=== PATIENT | male | born 1960 | race Caucasian/White ===

== ENCOUNTER 2023-10-13 17:40 | Inpatient (IN) ==
--- NOTE | 2023-10-13 17:53 | Emergency Department Note ---
Impression & Plan Syncope, Hypokalemia, Abnormal EKG, Elevated troponin I level ED Provider Note NAME: KARLEE VASQUEZ AGE: 63 SEX: M : 1960 ARRIVES VIA: Walk-In INFORMANT: Patient, ED PROVIDER(S): Ramana Burrows DO CHIEF COMPLAINT: Syncope HPI: The patient is a 63-year-old male who presented to the emergency department through triage for an evaluation of syncope. The patient is visiting the area for hunting season. He was at a hunting camp with some friends. He does admit to a small amount of alcohol throughout the day but he states he felt lightheaded and passed out. His friends told him that he passed out and slumped to the ground. The patient denies having any headache. He did not fall. He did not strike his head. The patient denies having any recent fevers. He did have some wheezing and coughing recently. He denies having any fever or abdominal pain. He denies having any chest pain. He denies having any leg swelling. ROS: See above HPI for pertinent positives & negatives. A total of 10 systems reviewed and were otherwise negative. PAST MEDICAL HISTORY: See Below PAST SURGICAL HISTORY: See Below FAMILY HISTORY: See Below SOCIAL HISTORY: See Below HOME MEDICATIONS: See Below ALLERGIES: See Below VITALS: See Below PHYSICAL EXAMINATION: GENERAL: Patient is awake alert in no acute distress patient is resting comfortably and showing no signs of anxiety EYES: The conjunctivae are clear. The pupils are round and reactive. EARS, NOSE, MOUTH AND THROAT: The nose is without any evidence of any deformity. NECK: The neck is nontender and supple. RESPIRATORY: Normal respiratory effort is noted there is no evidence of wheezing rhonchi or rales CARDIOVASCULAR: Regular rate and rhythm noted there no murmurs rubs or gallops normal S1 normal S2. GASTROINTESTINAL: The abdomen is soft. Abdomen is nontender. MUSCULOSKELETAL/EXTREMITIES: There is no evidence of gross deformity full range of motion is noted in the hips and shoulders. SKIN: There is no obvious evidence of any rash. There are no petechiae, pallor or cyanosis noted. NEUROLOGIC: Patient is awake alert and oriented x3 strength is symmetric patellar reflexes are 2+ bilaterally MEDICAL DECISION MAKING: The patient is a 63-year-old male who presented to the emergency department after having a syncopal episode. Patient was found to have an abnormal EKG on initial presentation. The patient was not hypoxic or tachycardic. He was found to have an elevation in his D-dimer. For this reason further radiographic studies were obtained such as a CT angiography of the chest. This did not appear to be consistent with acute pulmonary embolism. The patient had serial troponin measurements in the emergency department. His second troponin was elevated compared to the initial. For this reason I discussed his condition with the on-call [facility] hospitalist. They have agreed to evaluate the patient in the emergency department for further management and disposition. Given his findings he may require further cardiac workup to rule out a cardiac source for his syncopal episode. He was treated with IV fluids. On reevaluation he was significantly improved. He was also treated with potassium replacement. Triage Nursing notes reviewed. Prior medical records reviewed Vital Signs: reviewed and remarkable for no significant abnormalities Differential diagnosis: Vasovagal event, dehydration, infection, hypoglycemia, electrolyte abnormalities, cardiac sources, intracerebral event, pulmonary embolism, seizure, toxicologic, neurologic, as well as other pathologies. ER treatment provided: See below Diagnostics interpreted by me: ECG: EKG was obtained in the emergency department. My interpretation is normal sinus rhythm at 88 bpm. There was no ectopy. Early transition was noted. Nonspecific low lateral ST depressions were noted. No previous tracing was available. Cardiac Monitoring: An order was placed for continuous cardiac monitoring. The monitor shows a rate of 73 bpm with sinus rhythm. Laboratory studies: As stated above and show below. Imaging studies: See below. Radiographic imaging was reviewed by myself Consultation(s): I discussed this case with Dr. Ponce [facility] ED COURSE: The patient was placed in observation status at 1801. The patient was placed in observation for serial troponin measurements. During the time in observation, the patient was frequently reassessed and received serial troponin measurements. On Final reassessment the patient was found to have an elevation in the troponin compared to the initial troponin and the patient will be evaluated by the hospitalist for possible inpatient management at this time. A total observation time of 2 hours Procedures: none Past Med/Surg History Medical History Hypertension Social History Smoking Status: Current some day smoker Feels Safe at Home: Yes Allergies Allergies Allergy/AdvReac Type Severity Reaction Status Date / Time No Known Allergies Allergy Verified 10/13/23 18:30 Home Meds Home Medications Medication Instructions Recorded Confirmed amlodipine 5 mg tablet 5 mg PO QAM 10/13/23 10/13/23 chlorthalidone 25 mg tablet 25 mg PO QAM 10/13/23 10/13/23 lisinopril 20 mg tablet 20 mg PO QAM 10/13/23 10/13/23 multivitamin 1 tab PO QAM 10/13/23 10/13/23 niacin 100 mg tablet 0 mg PO QAM 10/13/23 10/13/23 omega 8-buv-rdp-fish oil 1,000 mg 1 cap PO QAM 10/13/23 10/13/23 (120 mg-180 mg) capsule (Fish Oil) Results & Data (ED) Vital Signs Vital Signs - 24 hr 10/13/23 17:42 10/13/23 17:58 10/13/23 18:17 Temperature 36.8 C Temperature Source Temporal Artery Scan Pulse Rate 89 88 82 Pulse Rate from SpO2 Sensor Pulse Rhythm Regular Respiratory Rate 18 18 Respiratory Effort / Characteristics Non-Labored Spontaneous Respiratory Depth Normal Respiratory Pattern Regular Blood Pressure 150/97 H Blood Pressure Mean 114 Blood Pressure Position Sitting Pulse Oximetry 99 96 Oxygen Delivery Method Room Air Room Air Sepsis Recent Fever Within 48 Hours No Sepsis New/Unexplained Change in Mental Status No Sepsis Action Taken by Nursing No Action Required 10/13/23 19:05 10/13/23 19:30 10/13/23 20:00 Temperature Temperature Source Pulse Rate 83 89 86 Pulse Rate from SpO2 Sensor 84 Pulse Rhythm Respiratory Rate 22 18 14 Respiratory Effort / Characteristics Respiratory Depth Respiratory Pattern Blood Pressure 126/83 146/95 H Blood Pressure Mean 97 112 Blood Pressure Position Pulse Oximetry 99 98 98 Oxygen Delivery Method Room Air Room Air Sepsis Recent Fever Within 48 Hours Sepsis New/Unexplained Change in Mental Status Sepsis Action Taken by Nursing 10/13/23 21:02 10/13/23 22:00 10/13/23 23:00 Temperature Temperature Source Pulse Rate 87 88 77 Pulse Rate from SpO2 Sensor Pulse Rhythm Respiratory Rate 20 12 18 Respiratory Effort / Characteristics Respiratory Depth Respiratory Pattern Blood Pressure 146/89 H 138/89 124/84 Blood Pressure Mean 103 99 97 Blood Pressure Position Pulse Oximetry Oxygen Delivery Method Sepsis Recent Fever Within 48 Hours Sepsis New/Unexplained Change in Mental Status Sepsis Action Taken by Nursing 10/14/23 00:00 Temperature Temperature Source Pulse Rate 69 Pulse Rate from SpO2 Sensor Pulse Rhythm Respiratory Rate 20 Respiratory Effort / Characteristics Respiratory Depth Respiratory Pattern Blood Pressure 119/76 Blood Pressure Mean 90 Blood Pressure Position Pulse Oximetry 98 Oxygen Delivery Method Room Air Sepsis Recent Fever Within 48 Hours Sepsis New/Unexplained Change in Mental Status Sepsis Action Taken by [facility] Medications Current Medication List: was personally reviewed by me Laboratory Data Attestation: I reviewed the patient's lab results. 10/13/23 18:01 10/13/23 18:01 Lab Results 10/13/23 10/13/23 Range/Units 18:01 21:00 WBC 8.76 (4.8-10.8) K/ul RBC 4.91 (4.70-6.10) M/uL Hgb 15.2 (14.0-18.0) g/dl Hct 43.5 (42.0-52.0) % MCV 88.6 (80.0-100.0) fL MCH 31.0 (25.0-34.0) pg MCHC 34.9 (32.0-36.0) g/dL RDW Std Deviation 39.6 (36.4-46.3) fL RDW Coeff of Abraham 12.2 (11.5-14.5) % Plt Count 163 (130-400) K/uL MPV 10.6 (9.4-12.4) fL Immature Gran % (Auto) 0.3 % Neut % (Auto) 79.6 % Lymph % (Auto) 11.3 % [place] % (Auto) 8.4 % Eos % (Auto) 0.1 % Baso % (Auto) 0.3 % Neut # (Auto) 6.96 H (1.40-6.50) K/uL Lymph # (Auto) 0.99 L (1.20-3.40) K/uL [place] # (Auto) 0.74 H (0.11-0.59) K/uL Eos # (Auto) 0.01 (0.00-0.50) K/uL Baso # (Auto) 0.03 (0.00-0.20) K/uL Immature Gran # (Auto) 0.03 (0.01-0.20) K/uL PT 10.9 (9.0-12.0) Seconds INR 1.0 (0.9-1.1) APTT 27.6 (21.0-31.0) Seconds PTT Ratio 1.0 D-Dimer 3110 H* (0-500) ug/L FEU Sodium 136 (136-145) mmol/L Potassium 3.1 L (3.5-5.1) mmol/L Chloride 97 L (98-107) mmol/L Carbon Dioxide 29 (21-32) mmol/L Anion Gap 10 (3-11) BUN 16 (6-23) mg/dl Creatinine 1.18 (0.6-1.4) mg/dl Est Cr Clr Drug Dosing 85.5 ml/min Est GFR ( Amer) 76.7 ml/min Est GFR (Non-Af Amer) 66.2 ml/min BUN/Creatinine Ratio 13.6 (10-20) Glucose 152 H (70-99(Fasting)) mg/dl Calcium 9.3 (8.6-10.3) mg/dl Magnesium 1.8 (1.7-2.4) mg/dl Total Bilirubin 0.7 (0.2-1.0) mg/dl AST 17 (13-39) U/L ALT 21 (7-52) U/L Alkaline Phosphatase 73 (34-104) U/L Troponin I High Sens 16.1 23.3 H (0-20) pg/ml Total Protein 7.0 (6.0-8.3) gm/dl Albumin 4.1 (3.4-5.0) gm/dl Globulin 2.9 (2.5-4.0) gm/dl Albumin/Globulin Ratio 1.4 (0.9-2) TSH 1.249 (0.300-4.500) uIu/ml Urine Color Yellow Urine Appearance Clear (Clear) Urine pH 7.5 (4.5-7.5) Ur Specific [place] 1.017 (1.000-1.030) Urine Protein Trace H (Negative) Urine Glucose (UA) Negative (Negative) Urine Ketones 1+ H (Negative) Urine Blood Negative (Negative) Urine Nitrite Negative (Negative) Urine Bilirubin Negative (Negative) Urine Urobilinogen Negative (Negative) Ur Leukocyte Esterase Negative (Negative) Urine WBC (Auto) 1-5 (0-5) /hpf Urine RBC (Auto) 5-10 H (0-4) /hpf U Hyaline Cast (Auto) 1-5 (0-5) /lpf U Epithel Cells (Auto) 5-10 H (0-5) /lpf Urine Bacteria (Auto) Negative (Negative) Ethyl Alcohol mg/dL < 10.0 (<10.0) mg/dl SARS-CoV-2 (PCR) NEGATIVE (Negative) Influenza Type A (PCR) Negative (Neg) Influenza Type B (PCR) Negative (Neg) RSV (RT-PCR) Negative (Neg) Administered Medications Discontinued Medications Aspirin (Aspirin Chew 324 Mg) 324 mg PO NOW STA Stop: 10/13/23 22:56 Last Admin: 10/13/23 23:12 Dose: 324 mg Documented By: LULA Sodium Chloride (Nss) 1,000 mls @ 999 mls/hr IV .Q1H1M ALISHA Stop: 10/13/23 19:00 Last Infusion: 10/13/23 19:09 Dose: Infused Documented By: Admin: 10/13/23 18:10 Dose: 999 mls/hr Documented By: NATACHA Ioversol (Optiray 320 125ml) 118 ml IV ONCE ONE Stop: 10/13/23 19:01 Last Admin: 10/13/23 19:00 Dose: 118 ml Documented By: JUAN Potassium Chloride (Potassium Chloride 10 Meq Tabcr) 20 meq PO NOW STA Stop: 10/13/23 18:50 Last Admin: 10/13/23 19:07 Dose: 20 meq Documented By: LULA Imaging Data Attestation: I personally reviewed and interpreted this imaging study as follows: My Impression: 1 view chest x-ray was obtained in the emergency department. My interpretation is no free air or definite infiltrate, there was a loop of bowel over the liver, no previous chest x-ray was available, final report pending. Radiologist's Impression: Chest X-Ray 10/13/23 17:52 XR chest 1V portable HISTORY: syncope COMPARISON: None. FINDINGS: The lungs are clear. Cardiac silhouette is normal in size. No pleural effusions. No pneumothorax. IMPRESSION: No acute process. ACT 112: Negative or not required by law. Electronically signed by: Marck Diehl M.D. 10/13/2023 7:04 PM Chest CTA 10/13/23 18:51 Exam(s): CTA CHEST IV Amt: 118ml EXAM: CT Angiography Chest With Intravenous Contrast CLINICAL HISTORY: Pulmonary embolus. TECHNIQUE: Axial computed tomographic angiography images of the chest with intravenous contrast. CTDI is 27.89 mGy and DLP is 963.25 mGy-cm. Automated exposure control was utilized for the study. A dose lowering technique was utilized adhering to the principles of ALARA. MIP reconstructed images were created and reviewed. COMPARISON: Chest radiograph 10/13/2023 FINDINGS: Pulmonary arteries: Unremarkable. No pulmonary embolus. Aorta: Minimal atherosclerosis. No thoracic aortic aneurysm. Lungs: Unremarkable. No mass. No consolidation. Pleural space: Unremarkable. No significant effusion. No pneumothorax. Heart: Unremarkable. No cardiomegaly. No significant pericardial effusion. No evidence of RV dysfunction. Thyroid: Incidentally noted right thyroid 2.5 cm nodule. An additional 2.3 cm mass adjacent to the inferior aspect of the thyroid isthmus is also present. Bones/joints: There are degenerative changes of the spine. No acute fracture. Soft tissues: Unremarkable. Lymph nodes: Unremarkable. No enlarged lymph nodes. IMPRESSION: 1. No pulmonary embolus. 2. Incidentally noted right thyroid 2.5 cm nodule. An additional 2.3 cm mass adjacent to the inferior aspect of the thyroid isthmus is also present. Recommend further evaluation with dedicated thyroid ultrasound on a nonemergent basis. Electronically signed by: Deidre Bee MD 10/13/23 20:42 PM Discharge Plan Visit Data Chief Complaint: Syncope (Near Syncope) Stated Complaint: SYNCOPE ED Provider: Ramana Burrows Discharge Problem: Syncope, Hypokalemia Prescriptions Prescriptions: No Action multivitamin Tablet 1 tab PO QAM lisinopril 20 mg tablet 20 mg PO QAM chlorthalidone 25 mg tablet 25 mg PO QAM amlodipine 5 mg tablet 5 mg PO QAM niacin 100 mg Tablet 0 mg PO QAM Rx Instructions: PT UNSURE OF STRENGTH omega 0-oyp-fxu-fish oil [Fish Oil] 1,000 mg (120 mg-180 mg) Capsule 1 cap PO QAM Discharge Problem: Syncope Qualifiers: Syncope type: unspecified Qualified Code(s): R55 - Syncope and collapse
[2023-10-13] MEDS ORDERED: SODIUM CHLORIDE 0.9% 1,000 ML IV SCH (18:00)
[2023-10-13 18:19] LABS: Appearance Urine Clear (Clear); Bacteria Urine Automated Negative (Negative); Bilirubin Urine Negative (Negative); Blood Urine Negative (Negative); Color Urine Yellow; Glucose Urine UA Negative (Negative); Ketones Urine 1+ (Negative); Leukocyte Esterase Urine Negative (Negative); Nitrite Urine Negative (Negative); Specific Gravity Urine 1.017 (1.000-1.030); Urobilinogen Urine Negative (Negative); pH Urine 7.5 (4.5-7.5)
[2023-10-13 18:20] LABS: Protein Urine Trace (Negative)
[2023-10-13 18:24] LABS: Basophils # (auto) 0.03 K/uL (0.00-0.20); Basophils % (auto) 0.3 %; Eosinophils # (auto) 0.01 K/uL (0.00-0.50); Eosinophils % (auto) 0.1 %; Hematocrit (blood only) 43.5 % (42.0-52.0); Hemoglobin 15.2 g/dl (14.0-18.0); Immature Granulocytes # (auto) 0.03 K/uL (0.01-0.20); Immature Granulocytes % (auto) 0.3 %; Lymphocytes # (auto) 0.99 K/uL (1.20-3.40); Lymphocytes % (auto) 11.3 %; Mean Corpuscular Hgb Conc 34.9 g/dL (32.0-36.0); Mean Corpuscular Volume 88.6 fL (80.0-100.0); Mean Platelet Volume 10.6 fL (9.4-12.4); Monocytes # (auto) 0.74 K/uL (0.11-0.59); Monocytes % (auto) 8.4 %; Neutrophils # (auto) 6.96 K/uL (1.40-6.50); Neutrophils % (auto) 79.6 %; Platelet Count 163 K/uL (130-400); RDW Coefficient of Variation 12.2 % (11.5-14.5); RDW Standard Deviation 39.6 fL (36.4-46.3); Red Blood Count 4.91 M/uL (4.70-6.10); White Blood Count 8.76 K/ul (4.8-10.8)
[2023-10-13 18:39] LABS: Albumin Level 4.1 gm/dl (3.4-5.0); Bilirubin,Total 0.7 mg/dl (0.2-1.0); Calcium 9.3 mg/dl (8.6-10.3); Magnesium 1.8 mg/dl (1.7-2.4); Potassium 3.1 mmol/L (3.5-5.1)
[2023-10-13 18:44] LABS: Troponin I High Sensitivity 16.1 pg/ml (0-20)
[2023-10-13 18:45] LABS: Albumin Globulin Ratio 1.4 (0.9-2); BUN Creatinine Ratio 13.6 (10-20); Creatinine Clr Calc Pharmacy 85.5 ml/min; Est GFR (African American) 76.7 ml/min; Est GFR (Non-African American) 66.2 ml/min; Globulin 2.9 gm/dl (2.5-4.0)
[2023-10-13 18:48] LABS: Partial Thromboplastin Time 27.6 Seconds (21.0-31.0); Prothrombin Time 10.9 Seconds (9.0-12.0)
[2023-10-13 18:49] LABS: D Dimer 3110 ug/L FEU (0-500)
[2023-10-13] MEDS ORDERED: POTASSIUM CHLORIDE 10 MEQ TABCR PO STA (18:49)
[2023-10-13 18:54] LABS: Thyroid Stimulating Hormone 1.249 uIu/ml (0.300-4.500)
[2023-10-13 18:58] LABS: Influenza A virus by PCR Negative (Neg); Influenza B virus by PCR Negative (Neg); RSV by PCR Negative (Neg); SARS CoV2 RNA(COVID-19) Ceph NEGATIVE (Negative)
[2023-10-13] MEDS ORDERED: OPTIRAY 320 125ml IV ONE (19:00)
--- NOTE | 2023-10-13 19:07 | XRay Report ---
XR chest 1V portable HISTORY: syncope COMPARISON: None. FINDINGS: The lungs are clear. Cardiac silhouette is normal in size. No pleural effusions. No pneumot horax. IMPRESSION: No acute process. ACT 112: Negative or not required by law. Electronically signed by: Marck Diehl M.D. 10/13/2023 7:04 PM
--- NOTE | 2023-10-13 20:44 | CT Scan Report ---
Exam(s): CTA CHEST IV Amt: 118ml EXAM: CT Angiography Chest With Intravenous Contrast CLINICAL HISTORY: Pulmonary embolus. TECHNIQUE: Axial computed tomographic angiography images of the chest with intravenous contrast. CTDI is 27.89 mGy and DLP is 963.25 mGy-cm. Automated exposure control was utilized for the study. A dose lowering technique was utilized adhering to the principles of ALARA. MIP reconstructed images were created and reviewed. COMPARISON: Chest radiograph 10/13/2023 FINDINGS: Pulmonary arteries: Unremarkable. No pulmonary embolus. Aorta: Minimal atherosclerosis. No thoracic aortic aneurysm. Lungs: Unremarkable. No mass. No consolidation. Pleural space: Unremarkable. No significant effusion. No pneumothorax. Heart: Unremarkable. No cardiomegaly. No significant pericardial effusion. No evidence of RV dysfunction. Thyroid: Incidentally noted right thyroid 2.5 cm nodule. An additional 2.3 cm mass adjacent to the inferior aspect of the thyroid isthmus is also present. Bones/joints: There are degenerative changes of the spine. No acute fracture. Soft tissues: Unremarkable. Lymph nodes: Unremarkable. No enlarged lymph nodes. IMPRESSION: 1. No pulmonary embolus. 2. Incidentally noted right thyroid 2.5 cm nodule. An additional 2.3 cm mass adjacent to the inferior aspect of the thyroid isthmus is also present. Recommend further evaluation with dedicated thyroid ultrasound on a nonemergent basis. Electronically signed by: Deidre Bee MD 10/13/23 20:42 PM
[2023-10-13] MEDS ORDERED: ASPIRIN CHEW 324 MG PO STA (22:55)
--- NOTE | 2023-10-13 23:09 | History & Physical Report ---
Date of Service October 13, 2023 Assessment & Plan (1) Syncope: Plan: 63-year-old male with past med hsitory significant for hypertension presents with syncope. [place] Gentle fluids and orthostatics D-dimer was elevated but CTA chest unremarkable Second troponin is mildly elevated After episode had a brief episode of left sided chest pain EKG no acute findings Will monitor on telemetry Will follow serial troponins Start on aspirin If troponins trends higher will start on IV heparin Echocardiogram Cardiology consult Hypokalemia Replace History of hypertension Continue home medications of amlodipine, chlorthalidone and lisinopril Will monitor DVT prophylaxis SCDs for now Disposition telemetry floor Full code History of Present Illness Chief Complaint: Syncope Primary Care Provider: NO PCP 63-year-old male with past med history significant for hypertension presents with syncope. Patient visiting locally for hunting and was in a hunting camp. He was playing cards when he suddenly passed out and was caught before falling down. Passed out for about 1 to 2 minutes. After waking up he was not confused. No biting of tongue , no shaking of the body and no incontinence during the episode. After waking up he was had brief episodes of sweating. He also brief episode of left-sided chest pain 3/10 in severity ,no radiation. No shortness of breath. No dizziness. Currently no chest pain. No fevers. Last Monday and he had mild cold symptoms but that resolved. Eating and drinking okay. Yesterday and today he had 1 beer. At work he walks and in last 2 days he was walking and did not had any chest pain or shortness of breath. Denies any headache. Vision is okay. No abdominal pain. Normal bowel and bladder movements. No rash. Patient states about 1 and half years ago he had a similar episode when he was found to have a high blood pressure. He also had a stress test at that time which was unremarkable as per patient. Past medical history. As mentioned above. Past surgical history. [place] tooth extraction Social history. Smokes cigars once in a while. Social drinking. No drug use. Family history. Mother and father had high blood pressure. Maternal grandmother had late onset diabetes. Allergies Allergy/AdvReac Type Severity Reaction Status Date / Time No Known Allergies Allergy Verified 10/13/23 18:30 Home Medications Medication Instructions Recorded Confirmed Type amlodipine 5 mg tablet 5 mg PO QAM 10/13/23 10/13/23 History chlorthalidone 25 mg tablet 25 mg PO QAM 10/13/23 10/13/23 History lisinopril 20 mg tablet 20 mg PO QAM 10/13/23 10/13/23 History multivitamin 1 tab PO QAM 10/13/23 10/13/23 History niacin 100 mg tablet 0 mg PO QAM 10/13/23 10/13/23 History omega 6-syc-csf-fish oil 1,000 mg 1 cap PO QAM 10/13/23 10/13/23 History (120 mg-180 mg) capsule (Fish Oil) Past Med/Surg History Medical History Hypertension Social History Smoking Status: Current some day smoker Tobacco Type: Cigars Second Hand Exposure: No; Do You Dip or Chew Tobacco: No; Tobacco Cessation Education Requested by Patient: No Hx Alcohol Use: Yes Alcohol type: beer Hx Substance Use: No Preferred Language: Croatian Communication Ability: Effective Basin Cleaner Required: No Beliefs That Will Affect Care: None Current Living Situation: Spouse Other Information That Helps Us Care for You: No Feels Safe at Home: Yes Safety Concerns: Feels Safe At This Time Assistive Devices: None Review of Systems Review of Systems: All systems reviewed & are unremarkable except as noted in HPI & below Physical Exam Physical Exam: General- Not in distress Head- atraumatic Eyes- PERRL. ENT- oropharynx clear Neck- supple, no JVD. Lungs- clear to auscultation no wheezing or crackles. Heart- regular rhythm; no murmur, no gallop. Abdomen- normal bowel sounds, soft, nontender, no distension. Extremities- no pretibial edema, no erythema seen. Neuro- alert, oriented x 3; PERRL.no facial palsy; no dysarthria; moves extremities. Skin- warm & dry Results & Data Results & Data Vital Signs (Past 12 Hours) Vital Signs Temp Pulse Resp BP Pulse Ox O2 Del Method 10/13/23 23:00 77 18 124/84 10/13/23 22:00 88 12 138/89 10/13/23 21:02 87 20 146/89 H 10/13/23 20:00 86 14 146/95 H 98 Room Air 10/13/23 19:30 89 18 98 Room Air 10/13/23 19:05 83 22 126/83 99 10/13/23 18:17 82 18 96 Room Air 10/13/23 17:58 88 10/13/23 17:42 36.8 C 89 18 150/97 H 99 Room Air Diagnostic Findings Laboratory Results WBC 8.76 K/ul (4.8-10.8) 10/13/23 18:01 RBC 4.91 M/uL (4.70-6.10) 10/13/23 18:01 Hgb 15.2 g/dl (14.0-18.0) 10/13/23 18:01 Hct 43.5 % (42.0-52.0) 10/13/23 18:01 MCV 88.6 fL (80.0-100.0) 10/13/23 18:01 MCH 31.0 pg (25.0-34.0) 10/13/23 18:01 MCHC 34.9 g/dL (32.0-36.0) 10/13/23 18:01 RDW Std Deviation 39.6 fL (36.4-46.3) 10/13/23 18:01 RDW Coeff of [place] 12.2 % (11.5-14.5) 10/13/23 18:01 Plt Count 163 K/uL (130-400) 10/13/23 18:01 MPV 10.6 fL (9.4-12.4) 10/13/23 18:01 Immature Gran % (Auto) 0.3 % 10/13/23 18:01 Neut % (Auto) 79.6 % 10/13/23 18:01 Lymph % (Auto) 11.3 % 10/13/23 18:01 [place] % (Auto) 8.4 % 10/13/23 18:01 Eos % (Auto) 0.1 % 10/13/23 18:01 Baso % (Auto) 0.3 % 10/13/23 18:01 Neut # (Auto) 6.96 K/uL (1.40-6.50) H 10/13/23 18:01 Lymph # (Auto) 0.99 K/uL (1.20-3.40) L 10/13/23 18:01 [place] # (Auto) 0.74 K/uL (0.11-0.59) H 10/13/23 18:01 Eos # (Auto) 0.01 K/uL (0.00-0.50) 10/13/23 18:01 Baso # (Auto) 0.03 K/uL (0.00-0.20) 10/13/23 18:01 Immature Gran # (Auto) 0.03 K/uL (0.01-0.20) 10/13/23 18:01 PT 10.9 Seconds (9.0-12.0) 10/13/23 18: INR 1.0 (0.9-1.1) 10/13/23 18:01 APTT 27.6 Seconds (21.0-31.0) 10/13/23 18: PTT Ratio 1.0 10/13/23 18:01 D-Dimer 3110 ug/L FEU (0-500) H* 10/13/23 18:01 Sodium 136 mmol/L (136-145) 10/13/23 18:01 Potassium 3.1 mmol/L (3.5-5.1) L 10/13/23 18:01 Chloride 97 mmol/L (98-107) L 10/13/23 18:01 Carbon Dioxide 29 mmol/L (21-32) 10/13/23 18:01 Anion Gap 10 (3-11) 10/13/23 18:01 BUN 16 mg/dl (6-23) 10/13/23 18:01 Creatinine 1.18 mg/dl (0.6-1.4) 10/13/23 18:01 Est Cr Clr Drug Dosing 85.5 ml/min 10/13/23 18:01 Est GFR ( Amer) 76.7 ml/min 10/13/23 18:01 Est GFR (Non-Af Amer) 66.2 ml/min 10/13/23 18:01 BUN/Creatinine Ratio 13.6 (10-20) 10/13/23 18: Glucose 152 mg/dl (70-99(Fasting)) H 10/13/23 18:01 Calcium 9.3 mg/dl (8.6-10.3) 10/13/23 18: Magnesium 1.8 mg/dl (1.7-2.4) 10/13/23 18:01 Total Bilirubin 0.7 mg/dl (0.2-1.0) 10/13/23 18:01 AST 17 U/L (13-39) 10/13/23 18:01 ALT 21 U/L (7-52) 10/13/23 18:01 Alkaline Phosphatase 73 U/L (34-104) 10/13/23 18:01 Troponin I High Sens 23.3 pg/ml (0-20) H 10/13/23 21:00 Total Protein 7.0 gm/dl (6.0-8.3) 10/13/23 18:01 Albumin 4.1 gm/dl (3.4-5.0) 10/13/23 18: Globulin 2.9 gm/dl (2.5-4.0) 10/13/23 18:01 Albumin/Globulin Ratio 1.4 (0.9-2) 10/13/23 18: TSH 1.249 uIu/ml (0.300-4.500) 10/13/23 18:01 Urine Color Yellow 10/13/23 18:01 Urine Appearance Clear (Clear) 10/13/23 18:01 Urine pH 7.5 (4.5-7.5) 10/13/23 18:01 Ur Specific [place] 1.017 (1.000-1.030) 10/13/23 18:01 Urine Protein Trace (Negative) H 10/13/23 18:01 Urine Glucose (UA) Negative (Negative) 10/13/23 18:01 Urine Ketones 1+ (Negative) H 10/13/23 18:01 Urine Blood Negative (Negative) 10/13/23 18:01 Urine Nitrite Negative (Negative) 10/13/23 18:01 Urine Bilirubin Negative (Negative) 10/13/23 18:01 Urine Urobilinogen Negative (Negative) 10/13/23 18:01 Ur Leukocyte Esterase Negative (Negative) 10/13/23 18:01 Urine WBC (Auto) 1-5 /hpf (0-5) 10/13/23 18:01 Urine RBC (Auto) 5-10 /hpf (0-4) H 10/13/23 18:01 U Hyaline Cast (Auto) 1-5 /lpf (0-5) 10/13/23 18:01 U Epithel Cells (Auto) 5-10 /lpf (0-5) H 10/13/23 18:01 Urine Bacteria (Auto) Negative (Negative) 10/13/23 18:01 Ethyl Alcohol mg/dL < 10.0 mg/dl (<10.0) 10/13/23 18:01 SARS-CoV-2 (PCR) NEGATIVE (Negative) 10/13/23 18:01 Influenza Type A (PCR) Negative (Neg) 10/13/23 18:01 Influenza Type B (PCR) Negative (Neg) 10/13/23 18:01 RSV (RT-PCR) Negative (Neg) 10/13/23 18:01 Impressions Chest X-Ray 10/13/23 17:52 XR chest 1V portable HISTORY: syncope COMPARISON: None. FINDINGS: The lungs are clear. Cardiac silhouette is normal in size. No pleural effusions. No pneumothorax. IMPRESSION: No acute process. ACT 112: Negative or not required by law. Electronically signed by: Marck Diehl M.D. 10/13/2023 7:04 PM Chest CTA 10/13/23 18:51 Exam(s): CTA CHEST IV Amt: 118ml EXAM: CT Angiography Chest With Intravenous Contrast CLINICAL HISTORY: Pulmonary embolus. TECHNIQUE: Axial computed tomographic angiography images of the chest with intravenous contrast. CTDI is 27.89 mGy and DLP is 963.25 mGy-cm. Automated exposure control was utilized for the study. A dose lowering technique was utilized adhering to the principles of ALARA. MIP reconstructed images were created and reviewed. COMPARISON: Chest radiograph 10/13/2023 FINDINGS: Pulmonary arteries: Unremarkable. No pulmonary embolus. Aorta: Minimal atherosclerosis. No thoracic aortic aneurysm. Lungs: Unremarkable. No mass. No consolidation. Pleural space: Unremarkable. No significant effusion. No pneumothorax. Heart: Unremarkable. No cardiomegaly. No significant pericardial effusion. No evidence of RV dysfunction. Thyroid: Incidentally noted right thyroid 2.5 cm nodule. An additional 2.3 cm mass adjacent to the inferior aspect of the thyroid isthmus is also present. Bones/joints: There are degenerative changes of the spine. No acute fracture. Soft tissues: Unremarkable. Lymph nodes: Unremarkable. No enlarged lymph nodes. IMPRESSION: 1. No pulmonary embolus. 2. Incidentally noted right thyroid 2.5 cm nodule. An additional 2.3 cm mass adjacent to the inferior aspect of the thyroid isthmus is also present. Recommend further evaluation with dedicated thyroid ultrasound on a nonemergent basis. Electronically signed by: Deidre Bee MD 10/13/23 20:42 PM ECG Additional Comments: ECG. Normal sinus rhythm rate of 88. Nonspecific T wave abnormality. Code Status & VTE Plan VTE Prophylaxis Plan VTE Prophylaxis will be ordered: Yes (1) Syncope Syncope type: unspecified Qualified Code(s): R55 - Syncope and collapse
[2023-10-14] MEDS ORDERED: SODIUM CHLORIDE 0.9% 1,000 ML IV SCH (02:29)
[2023-10-14] MEDS ORDERED: POLYETHYLENE (MIRALAX) 17 GM PACK PO PRN (02:29)
[2023-10-14] MEDS: NITROGLYCERIN SL 0.4 MG/TAB TAB SL PRN ×4 (06:11→17:44)
[2023-10-14 06:25] LABS: Basophils # (auto) 0.03 K/uL (0.00-0.20); Basophils % (auto) 0.4 %; Eosinophils # (auto) 0.03 K/uL (0.00-0.50); Eosinophils % (auto) 0.4 %; Hematocrit (blood only) 41.6 % (42.0-52.0); Hemoglobin 14.7 g/dl (14.0-18.0); Immature Granulocytes # (auto) 0.02 K/uL (0.01-0.20); Immature Granulocytes % (auto) 0.3 %; Mean Corpuscular Hemoglobin 30.8 pg (25.0-34.0); Mean Corpuscular Hgb Conc 35.3 g/dL (32.0-36.0); Mean Corpuscular Volume 87.2 fL (80.0-100.0); Mean Platelet Volume 10.7 fL (9.4-12.4); Monocytes # (auto) 0.92 K/uL (0.11-0.59); Monocytes % (auto) 13.1 %; Neutrophils # (auto) 4.84 K/uL (1.40-6.50); Neutrophils % (auto) 68.8 %; Platelet Count 176 K/uL (130-400); RDW Coefficient of Variation 12.4 % (11.5-14.5); RDW Standard Deviation 39.8 fL (36.4-46.3); Red Blood Count 4.77 M/uL (4.70-6.10); White Blood Count 7.04 K/ul (4.8-10.8)
[2023-10-14 06:40] LABS: BUN Creatinine Ratio 14.3 (10-20); Calcium 8.9 mg/dl (8.6-10.3); Est GFR (African American) 96.1 ml/min; Est GFR (Non-African American) 82.9 ml/min; Potassium 3.2 mmol/L (3.5-5.1)
[2023-10-14 06:46] LABS: Troponin I High Sensitivity 26.4 pg/ml (0-20)
[2023-10-14] MEDS ORDERED: POTASSIUM CHLORIDE CRTAB 20 MEQ TABCR PO STA (07:16)
[2023-10-14] MEDS ORDERED: INFLUENZA VIRUS QUADRIVALENT VACCINE (IIV4) 0.5 ML SYR IM ONE (08:13)
--- NOTE | 2023-10-14 08:14 | Electrocardiogram Report ---
Test Reason : Blood Pressure : / mmHG Vent. Rate : 088 BPM Atrial Rate : 088 BPM P-R Int : 156 ms QRS Dur : 108 ms QT Int : 364 ms P-R-T Axes : 034 -15 063 degrees QTc Int : 440 ms Normal sinus rhythm Diffuse Minor Nonspecific T wave abnormality Abnormal ECG No previous ECGs available Confirmed by Ronnell Estrada ([id number]) on 10/14/2023 8:14:00 AM Referred By: REFERRED SELF Confirmed By:Ronnell Estrada
--- NOTE | 2023-10-14 08:14 | Electrocardiogram Report ---
Test Reason : Blood Pressure : / mmHG Vent. Rate : 079 BPM Atrial Rate : 079 BPM P-R Int : 158 ms QRS Dur : 094 ms QT Int : 406 ms P-R-T Axes : 056 001 008 degrees QTc Int : 465 ms Normal sinus rhythm Normal ECG When compared with ECG of 13-OCT-2023 17:49, Nonspecific T wave abnormality no longer evident in Lateral leads Confirmed by Ronnell Estrada ([id number]) on 10/14/2023 8:14:09 AM Referred By: REFERRED SELF Confirmed By:Ronnell Estrada
[2023-10-14] MEDS ORDERED: CHLORTHALIDONE 25 MG TAB PO SCH (09:00)
[2023-10-14] MEDS: ASPIRIN 81 MG ECTAB PO SCH (09:49)
[2023-10-14] MEDS: amLODIPine BESYLATE 5 MG TAB PO SCH (09:49)
[2023-10-14] MEDS: lisinopril 20 MG TAB PO SCH (09:50)
[2023-10-14] MEDS: MULTIVITAMIN TAB PO SCH (09:50)
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
[2023-10-14] MEDS ORDERED: MoRPHine SULFATE 2 MG/ML CARP ONE (17:59)
[2023-10-14] MEDS ORDERED: ALUMINUM/MAGNESIUM SUSP 30 ML UDC PO STA (18:00)
[2023-10-14] MEDS ORDERED: MoRPHine SULFATE 2 MG/ML CARP IV STA (18:02)
[2023-10-14] MEDS: LACTATED RINGER'S 1,000 ML IV SCH (18:10)
[2023-10-14] MEDS ORDERED: Heparin IV Adult Wt-Based Standard w/ INITIAL Bolus Protocol IV SCH (18:22)
--- NOTE | 2023-10-14 18:22 | Communication Note ---
Date of Service: October 14, 2023 Patient had left-sided chest pain for which he received nitro. His blood pressure dropped with administration of nitro. Blood pressure improved with IV bolus. Patient seen at bedside. He reports chest pain on the left side; stabbing and intermittent. It is nonradiating. He reports that it is relieved with nitro EKG was obtained. It was discussed with on-call special needs bus driver as well. The EKG was interpreted by on-call special needs bus driver. Cardiology recommended serial EKG with chest pain, troponin. Troponin ordered 2 hours apart for 3 times. Heparin drip ordered Lipitor 40 mg ordered GI cocktail ordered Also placed on LR at 125 cc/h for maintenance fluid.
[2023-10-14] MEDS ORDERED: HEPARIN SOD (PORCINE) 1000 UNIT/ML IV ONE (18:23)
[2023-10-14] MEDS ORDERED: HEPARIN IV BOLUS 7,000 UNITS in SYRINGE 0 ML IV ONE (19:15)
[2023-10-14] MEDS: ATORVASTATIN 40 MG TAB PO SCH (19:46)
[2023-10-14] MEDS: HEPARIN SODIUM/DEXTROSE 25,000 UNITS/500 ML BAG IV SCH (19:47)
[2023-10-15] MEDS: LACTATED RINGER'S 1,000 ML IV SCH ×3 (02:18→18:31)
[2023-10-15 02:31] LABS: Basophils # (auto) 0.03 K/uL (0.00-0.20); Basophils % (auto) 0.6 %; Eosinophils # (auto) 0.03 K/uL (0.00-0.50); Eosinophils % (auto) 0.6 %; Hematocrit (blood only) 39.2 % (42.0-52.0); Hemoglobin 13.4 g/dl (14.0-18.0); Immature Granulocytes # (auto) 0.01 K/uL (0.01-0.20); Immature Granulocytes % (auto) 0.2 %; Lymphocytes # (auto) 1.63 K/uL (1.20-3.40); Lymphocytes % (auto) 32.8 %; Mean Corpuscular Hemoglobin 30.7 pg (25.0-34.0); Mean Corpuscular Hgb Conc 34.2 g/dL (32.0-36.0); Mean Corpuscular Volume 89.7 fL (80.0-100.0); Mean Platelet Volume 10.8 fL (9.4-12.4); Monocytes # (auto) 0.66 K/uL (0.11-0.59); Monocytes % (auto) 13.3 %; Neutrophils # (auto) 2.61 K/uL (1.40-6.50); Neutrophils % (auto) 52.5 %; Platelet Count 168 K/uL (130-400); RDW Coefficient of Variation 12.4 % (11.5-14.5); RDW Standard Deviation 41.1 fL (36.4-46.3); Red Blood Count 4.37 M/uL (4.70-6.10); White Blood Count 4.97 K/ul (4.8-10.8)
[2023-10-15 02:46] LABS: BUN Creatinine Ratio 19.6 (10-20); Calcium 8.4 mg/dl (8.6-10.3); Est GFR (African American) 97.3 ml/min; Est GFR (Non-African American) 83.9 ml/min; Phosphorus 3.6 mg/dl (2.5-4.9); Potassium 3.6 mmol/L (3.5-5.1)
[2023-10-15 02:53] LABS: Troponin I High Sensitivity 18.2 pg/ml (0-20)
[2023-10-15 03:15] LABS: Partial Thromboplastin Ratio 2.4
[2023-10-15 03:19] LABS: Partial Thromboplastin Time 66.4 Seconds (21.0-31.0)
[2023-10-15] MEDS ORDERED: MoRPHine SULFATE 2 MG/ML CARP IV PRN (07:17)
--- NOTE | 2023-10-15 07:45 | Electrocardiogram Report ---
Test Reason : Blood Pressure : / mmHG Vent. Rate : 084 BPM Atrial Rate : 084 BPM P-R Int : 154 ms QRS Dur : 094 ms QT Int : 372 ms P-R-T Axes : 061 -13 000 degrees QTc Int : 439 ms Normal sinus rhythm Normal ECG When compared with ECG of 14-OCT-2023 05:19, No significant change Confirmed by Ronnell Estrada ([id number]) on 10/15/2023 7:45:02 AM Referred By: REFERRED SELF Confirmed By:Ronnell Estrada
--- NOTE | 2023-10-15 07:53 | Electrocardiogram Report ---
Test Reason : Blood Pressure : / mmHG Vent. Rate : 064 BPM Atrial Rate : 064 BPM P-R Int : 158 ms QRS Dur : 098 ms QT Int : 430 ms P-R-T Axes : 057 006 016 degrees QTc Int : 443 ms Normal sinus rhythm Normal ECG When compared with ECG of 14-OCT-2023 17:38, No significant change Confirmed by Ronnell Esrtada ([id number]) on 10/15/2023 7:52:36 AM Referred By: REFERRED SELF Confirmed By:Ronnell Estrada
[2023-10-15 09:39] LABS: Partial Thromboplastin Ratio 2.1
[2023-10-15] MEDS: amLODIPine BESYLATE 5 MG TAB PO SCH (09:41)
[2023-10-15] MEDS: lisinopril 20 MG TAB PO SCH (09:41)
[2023-10-15] MEDS: ATORVASTATIN 40 MG TAB PO SCH (09:41)
[2023-10-15] MEDS: ASPIRIN 81 MG ECTAB PO SCH (09:41)
[2023-10-15 09:42] LABS: Partial Thromboplastin Time 59.5 Seconds (21.0-31.0)
[2023-10-15] MEDS: MULTIVITAMIN TAB PO SCH (09:42)
[2023-10-15] MEDS: HEPARIN SODIUM/DEXTROSE 25,000 UNITS/500 ML BAG IV SCH (10:24)
[2023-10-15] MEDS ORDERED: methylPREDNISolone 60 MG in SYRINGE 0 ML IV ONE (12:45)
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
[2023-10-15] MEDS: ACETAMINOPHEN 325 MG TAB PO PRN ×2 (15:55→20:33)
[2023-10-16] MEDS: HEPARIN SODIUM/DEXTROSE 25,000 UNITS/500 ML BAG IV SCH (00:36)
[2023-10-16] MEDS: LACTATED RINGER'S 1,000 ML IV SCH ×2 (02:36→13:18)
[2023-10-16 06:01] LABS: Basophils # (auto) 0.01 K/uL (0.00-0.20); Basophils % (auto) 0.2 %; Hematocrit (blood only) 39.9 % (42.0-52.0); Hemoglobin 13.8 g/dl (14.0-18.0); Immature Granulocytes # (auto) 0.01 K/uL (0.01-0.20); Immature Granulocytes % (auto) 0.2 %; Lymphocytes # (auto) 0.98 K/uL (1.20-3.40); Mean Corpuscular Hemoglobin 30.7 pg (25.0-34.0); Mean Corpuscular Hgb Conc 34.6 g/dL (32.0-36.0); Mean Corpuscular Volume 88.7 fL (80.0-100.0); Mean Platelet Volume 10.8 fL (9.4-12.4); Monocytes # (auto) 0.46 K/uL (0.11-0.59); Monocytes % (auto) 8.9 %; Neutrophils % (auto) 71.7 %; Platelet Count 196 K/uL (130-400); RDW Standard Deviation 39.3 fL (36.4-46.3); White Blood Count 5.16 K/ul (4.8-10.8)
[2023-10-16 06:16] LABS: BUN Creatinine Ratio 16.1 (10-20); Calcium 8.9 mg/dl (8.6-10.3); Creatinine Clr Calc Pharmacy 107.9 ml/min; Est GFR (African American) 102.3 ml/min; Est GFR (Non-African American) 88.3 ml/min; Potassium 3.7 mmol/L (3.5-5.1)
[2023-10-16 06:39] LABS: Partial Thromboplastin Ratio 2.4
--- NOTE | 2023-10-16 08:09 | Pre Anesthesia Assessment ---
Date of Service October 16, 2023 Pre Sedation Assessment Vital Signs Temp Pulse Pulse Resp BP BP Pulse Ox 10/16/23 09:26 70 18 139/95 96 10/16/23 09:15 77 18 149/91 H 96 10/16/23 07:55 36.6 C 69 18 148/88 H 97 10/16/23 03:15 36.6 C 71 18 137/83 98 10/15/23 22:30 36.6 C 63 18 114/73 96 10/15/23 22:07 65 10/15/23 20:35 10/15/23 19:06 36.9 C 74 18 152/90 H 96 10/15/23 15:21 36.8 C 70 18 121/81 97 10/15/23 15:01 77 10/15/23 12:15 36.8 C 76 18 133/81 98 O2 Del Method 10/16/23 09:26 Room Air 10/16/23 09:15 Room Air 10/16/23 07:55 Room Air 10/16/23 03:15 Room Air 10/15/23 22:30 Room Air 10/15/23 22:07 10/15/23 20:35 Room Air 10/15/23 19:06 Room Air 10/15/23 15:21 Room Air 10/15/23 15:01 10/15/23 12:15 Room Air Cardiovascular RRR, no murmur, no edema + S1 normal and + S2 normal + femoral pulses present and + radial pulses present; no JVD and no carotid brui t no edema Respiratory + respiratory effort normal; no respiratory distress and no labored breathing + clear to auscultation bilaterally; no crackles, no rales, no rhonchi and no wheezes Pre-Sedation Airway Assessment Smoking Status: Current some day smoker Short, Thick Neck: No Thyromental Distance: > or= 3.5 Finger Breadths Oral Cavity: + Chipped Teeth Mallampati Class: II ASA: ASA2 NPO Status Date of Last Intake of Fluids: 10/15/23 Time of Last Intake of Fluids: 18:00 Date of Last Intake of Solid Food: 10/15/23 Time of Last Intake of Solid Foods: 18:00 Procedure Planning Contraindications for Sedation: none Current Medications Reviewed: Yes Notes The planned sedation has been discussed with the patient. Informed Consent was obtained. I have identified the patient, determined the appropriateness of sedation and have assessed the patient immediately prior to the procedure. All medicine(s) and interventions are by my order.
[2023-10-16] MEDS ORDERED: niCARdipine HCL INJ 2.5 MG/ML 10 ML AMP ONE (08:21)
[2023-10-16] MEDS ORDERED: HEPARIN (PORCINE) 1000 UNIT/ML 10 ML (CATH LAB USE ONLY) ONE (08:21)
[2023-10-16] MEDS ORDERED: MIDAZOLAM HCL 1 MG/ML 2ML VIAL ONE (08:22)
[2023-10-16] MEDS ORDERED: NITROGLYCERIN/D5W 100MCG/ML 20ML SYR ONE (08:22)
[2023-10-16] MEDS ORDERED: fentaNYL citrate PF 100 MCG/2 ML VIAL ONE (08:22)
[2023-10-16] MEDS ORDERED: OPTIRAY 350 ONE (08:41)
--- NOTE | 2023-10-16 09:10 | Post Anesthesia Assessment ---
Date of Service October 16, 2023 Post Sedation Assessment Vital Signs Temp Pulse Pulse Resp BP BP Pulse Ox 10/16/23 09:26 70 18 139/95 96 10/16/23 09:15 77 18 149/91 H 96 10/16/23 07:55 36.6 C 69 18 148/88 H 97 10/16/23 03:15 36.6 C 71 18 137/83 98 10/15/23 22:30 36.6 C 63 18 114/73 96 10/15/23 22:07 65 10/15/23 20:35 10/15/23 19:06 36.9 C 74 18 152/90 H 96 10/15/23 15:21 36.8 C 70 18 121/81 97 10/15/23 15:01 77 10/15/23 12:15 36.8 C 76 18 133/81 98 O2 Del Method 10/16/23 09:26 Room Air 10/16/23 09:15 Room Air 10/16/23 07:55 Room Air 10/16/23 03:15 Room Air 10/15/23 22:30 Room Air 10/15/23 22:07 10/15/23 20:35 Room Air 10/15/23 19:06 Room Air 10/15/23 15:21 Room Air 10/15/23 15:01 10/15/23 12:15 Room Air Recovery Score Respiration: Deep Breath/Cough Circulation: +/-20% PreAnes Value Consciousness: Arouseable (by name) Oxygen Saturation: > 92% On Room Air Discharge Sedation Level of Care: Phase I Post Sedation Plan On clinical assessment, the patient appears to have tolerated the sedation without complications. Patient is recovering as anticipated. Patient will continue to be monitored by nursing and may be discharged when sedation discharge criteria are met per below protocol. Upon Completions of procedure up to 15 minutes continue every 5 minute vital signs and the P.A.R. score; then discharge to a Phase I or Fast Track to Phase II per the following guidelines: * Discharge Patient to appropriate Phase II area if PAR is 8 or greater or return to pre- procedure baseline. The post - procedure orders will be as directed. * If PAR score is less than 8 or not return to pre-procedure baseline then patient will follow Phase I monitoring till PAR is reached for Phase II. The Phase I may be done in procedure room or may call to secure a Phase I area. * If naloxone or flumazenil are used for reversal, hold in Phase I for continued monitoring from when last reversal dose was given for a minimum of 60 minutes or longer pending the nurse and/or physician discretion of patient condition before discharge to Phase II. Please call the Sedation Physician to re-evaluate and complete post-note for discharge to Phase II area. Do NOT discharge from procedure sedation or Phase 1 until post- sedation evaluation note is complete by procedure /sedation MD Sedation Discharge Instructions to be given to the patient at discharge to home.
--- NOTE | 2023-10-16 09:21 | Cardiac Catheterization ---
Cardiac Cath Procedure Full Procedure Date October 16, 2023 Pre-Procedure Diagnosis Pre-Procedure Diagnosis: Non STEMI AUC Score AUC Score: 7 Post-Procedure Diagnosis Post-Procedure Diagnosis: Moderate CAD and Elevated Intracardiac Pressures Procedure(s) Performed Procedure(s) Performed: Coronary Angiography and Left Heart Cath Swimming Pool Attendant Tommy Galindo DO Test Engine Evaluator(s) Jay RTMoiz Estimated Blood Loss Estimated Blood Loss: 5cc Medication(s) Medication(s): Fentanyl, Heparin, Lidocaine 1%, Nicardipine, Nitroglycerin and Versed Summary of Findings 50% mid LAD Hemodynamics Rest Ao:: 138/84/120 Final Ao: 144/82/111 LV: 134/5/24 Recommendations Recommendations: Medical Therapy and/or Counseling Radiation Exposure (mGy) 1469 Contrast (mls) 90 Fluids (cc crystalloids) Fluids (cc crystalloids): 150 Nss Drains Drains: N/A Anesthesia Moderate sedation. Start 0809. End 905. Sedation monitor: Marin CALDERON Procedural Complication(s) None Disposition Chief Wellness Officer Holding/Recovery I attest to the content of the Intraoperative Record and any orders documented therein. Any exceptions are noted below. ACC Data: Chief Wellness Officer Cardiac Status Clinical evaluation leading to the procedure [age]-year-old male presents with syncope, chest discomfort, and mildly elevated troponin. CAD Presenation: Non STEMI Heart Failure: No STEMI OR Non-STEMI Symptom Onset Date: 10/13/23 Symptom Onset Time: 17:00 Thrombolytics: No Coronary Anatomy Dominant: Co-Dominant Left Main (% Stenosis): Normal LAD (% Stenosis): Proximal (10%) and Mid (50% long segment) D1 (% Stenosis): Ostial (30%) Circumflex (% Stenosis): Normal OM1 (% Stenosis): Normal OM2 (% Stenosis): Normal L PL1 (% Stenosis): Normal L PL2 (% Stenosis): Normal L PDA (% Stenosis): Normal RCA (% Stenosis): Proximal (Luminal irregularities, 10%) and Mid (Luminal irregularities, 10%) R PDA (% Stenosis): Normal (small vessel) Ramus (% Stenosis): Ostial (20%) Diagnostic Physicians Name: Tommy Galindo DO Closure Device Percutaneous Entry Location: Radial Closure Device: Radial Band Recommendations: Medical Therapy and/or Counseling Intraprocedure Events Significant Disection: No Perforation: No
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
--- NOTE | 2023-10-16 09:49 | Cardiology Progress Note ---
Date of Service October 15, 2023 Assessment & Plan (1) Syncope: (2) Chest discomfort: (3) Elevated troponin I level: Plan Patient with recurrent chest pain yesterday. With mildly elevated troponin, recommend proceeding with further ischemic evaluation. Risk, benefits, alter natives to cardiac catheterization discussed. Will proceed with cardiac catheterization in a.m. 10/16/2023. Will likely proceed with loop recorder implantation postcardiac catheterization. Continue current medications and telemetry monitoring. Admission and Anticipated Discharge Date Admission Date: October 13, 2023 Subjective Patient seen and examined at the bedside. Heparin initiated overnight by internal medicine due to recurrent chest discomfort. No significant troponin elevation which remains flat. No ischemic ECG changes. Telemetry reveals sinus rhythm. Review of Systems Review of Systems: All systems reviewed & are unremarkable except as noted in Subjective Physical Exam Constitutional: well developed and well nourished; no acute distress ENMT: Mallampati Class: II Respiratory: normal respiratory effort; no respiratory distress, no labored breathing and no retractions Auscultation: lungs clear to auscultation bilaterally; no crackles, no rales, no rhonchi and no wheezes Cardiovascular: RRR, no murmur, no edema Rate/Rhythm: regular rate and regular rhythm Heart Sounds: normal S1 and normal S2; no murmur Vessels: femoral pulses present and radial pulses present; no JVD and no carotid bruit Extremities: no edema Gastrointestinal (Abdomen): Inspection/Auscultation: normal bowel sounds; abdomen not distended Percussion/Palpation: abdomen soft; abdomen nontender, no guarding and abdomen not rigid Neurologic: CN's II-XI intact bilaterally; no focal motor deficits Psychiatric: A+Ox3, euthymic affect Results & Data Vital Signs (Past 12 Hours) Vital Signs Temp Pulse Pulse Resp BP BP Pulse Ox 10/16/23 09:26 70 18 139/95 96 10/16/23 09:15 77 18 149/91 H 96 10/16/23 07:55 36.6 C 69 18 148/88 H 97 10/16/23 03:15 36.6 C 71 18 137/83 98 10/15/23 22:30 36.6 C 63 18 114/73 96 10/15/23 22:07 65 O2 Del Method 10/16/23 09:26 Room Air 10/16/23 09:15 Room Air 10/16/23 07:55 Room Air 10/16/23 03:15 Room Air 10/15/23 22:30 Room Air 10/15/23 22:07 (1) Syncope Syncope type: unspecified Qualified Code(s): R55 - Syncope and collapse
[2023-10-16] MEDS: ATORVASTATIN 40 MG TAB PO SCH (09:58)
[2023-10-16] MEDS: ASPIRIN 81 MG ECTAB PO SCH (10:09)
[2023-10-16] MEDS: lisinopril 20 MG TAB PO SCH (10:09)
[2023-10-16] MEDS: amLODIPine BESYLATE 5 MG TAB PO SCH (10:09)
[2023-10-16] MEDS: MULTIVITAMIN TAB PO SCH (10:10)
[2023-10-16] MEDS ORDERED: ATORVASTATIN 40 MG TAB PO ONE (10:20)
[2023-10-16] MEDS ORDERED: CHLORTHALIDONE 25 MG TAB PO ONE (10:21)
[2023-10-16] MEDS ORDERED: LIDOCAINE 1% LOCAL 20 ML VIAL ONE (11:37)
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
--- NOTE | 2023-10-16 13:25 | Electrophysiology Report ---
Date of Service October 16, 2023 Electrophysiology Procedure Electrophysiology Procedure Report The procedure performed: Implantation of patient activated loop recorder Staff room cooler installer: Stevo Johnson MD Indication: The patient is a 63-year-old gentleman with a history of recurrent syncope. Procedure in detail: The patient was informed of the risks benefits and alternatives to the intended procedure. They understood such and wished to proceed. The patient was taken t o the electrophysiology suite where the upper chest area was prepped and draped in the usual sterile fashion. An area left lateral to the sternum in the 4th intercostal space was subsequently anesthetized using subcutaneous administration of lidocaine solution. A small incision was made at this site and implantation of the loop recorder was accomplished using a proprietary implantation tool. The small incision was subsequently closed using a single 4 0 Vicryl suture. Steri-Strips and a sterile dressing were then applied. The patient tolerated the procedure well. There were no immediate complications. The device was tested noninvasively prior to conclusion of the procedure. 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 Model number LNQ22. Serial number [id number] Electrophysiology codes Implantable Monitors Procedure 1: Implantable Monitors: [id number] Loop Recorder Implant
[2023-10-16] MEDS: ACETAMINOPHEN 325 MG TAB PO PRN (13:57)
[2023-10-17] MEDS ORDERED: ATORVASTATIN 40 MG TAB PO SCH (09:00)
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
--- NOTE | 2023-10-18 17:54 | Coding Query ---
CODING QUERY To promote full compliance with coding requirements relating to patient care, provider participation is requested in all cases of branch billing payroll clerk uncertainty. Please assist us with the question(s) below: Coding Question(s): The 10/16 Cardiac Catheterization Report documents, "Pre- Procedure Diagnosis: Non STEMI", and, "Post-Procedure Diagnosis: Moderate CAD and Elevated Intracardiac Pressures". It is not clear if Non STEMI was still possible or if it was ruled-out. Please specify below, in your clinical opinion: ( x ) Non STEMI ( ) Non STEMI is Ruled-Out Physician's Response(s): Thank you Mari Waterman Principal Diagnosis: "that condition established after study, to be chiefly responsible for occasioning the admission of the patient to the hospital for care." Co-Existing Principal Diagnosis: "when two or more diagnoses equally meet the criteria for principal diagnosis as determined by the circumstances of admission, diagnostic work up, and/or therapy provided, and the Alphabetic Index, Tabular List, or another coding guideline does not provide sequencing direction, any one of the diagnoses may be sequenced first." "When the physician has documented what appears to be a current diagnosis in the body of the record, but has not included the diagnosis in the final diagnostic statement, the physician should be asked whether the diagnosis should be added." (Source Coding Clinic 2 QTR90. p3-4) RENALDO
--- NOTE | 2023-10-18 17:56 | Coding Query ---
CODING QUERY To promote full compliance with coding requirements relating to patient care, provider participation is requested in all cases of ic engineer uncertainty. Please assist us with the question(s) below: Coding Question(s): Please specify below, in your clinical opinion, the most likely cause of Syncope: ( + ) Syncope with Unspecified cause ( ) Syncope, most likely due to Specified cause: Please Specify: Physician's Response(s): Thank you Mari Waterman Principal Diagnosis: "that condition established after study, to be chiefly responsible for occasioning the admission of the patient to the hospital for care." Co-Existing Principal Diagnosis: "when two or more diagnoses equally meet the criteria for principal diagnosis as determined by the circumstances of admission, diagnostic work up, and/or therapy provided, and the Alphabetic Index, Tabular List, or another coding guideline does not provide sequencing direction, any one of the diagnoses may be sequenced first." "When the physician has documented what appears to be a current diagnosis in the body of the record, but has not included the diagnosis in the final diagnostic statement, the physician should be asked whether the diagnosis should be added." (Source Coding Clinic 2 QTR90. p3-4) RENALDO
== END 2023-10-16 18:11 | disposition home or self-care (01) | DRG 260 ==
LOC: ED 17:40 → 4W 23:00